=== PATIENT | female | born 1990 | race Caucasian/White ===

== ENCOUNTER 2017-03-16 12:01 | Emergency (ER) | payer OTHER ==
[~2017-03-16] VITALS: Ht 170.2 cm; Wt 74.8 kg
--- OUTSIDE RECORDS SUMMARY | ~2017-03-16 | XMS ---
Demographics + + + | Address | [address] | | | [place] | | | [place] [address] | + + + | Preferred Language | Unknown | + + + | Marital Status | Unknown | + + + | Presybeterian Affiliation | Unknown | + + + | Race | Unknown | + + + | Ethnic Group | Unknown | + + + Author + + + | Author | [facility] | + + + | Organization | [facility] | + + + | Address | [address] | | | [place] [address] | + + + | Phone | | + + + Care Team Providers + + + + | Care Bobbin Winder Name | Role | Phone | + + + + Unavailable | Unavailable | + + + + PROBLEMS + + + + + + + + | Type | Condition | ICD9-CM | [id number] | Onset | Condition | SNOMED | | | | Code | Code | Dates | Status | Code | + + + + + + + + | Problem | Depression | 300.4 | | | Active | [id number] | | | with | | | | | | | | anxiety | | | | | | + + + + + + + + | Problem | Insomnia | 307.42 | | | Active | [id number] | | | disorder | | | | | | | | related to | | | | | | | | another | | | | | | | | mental | | | | | | | | disorder | | | | | | + + + + + + + + | Assessment | Dental | K04.7 | | 06 Apr, | Active | [phone] | | | infection | | | 2017 | | | + + + + + + + + ALLERGIES + + + + +--------+ | Substance | Reaction | Event Type | Date | Status | + + + + +--------+ | erythromycin | vomit | Non Drug | Nov, | Active | | | | Allergy | | | + + + + +--------+ SOCIAL HISTORY No smoking Hx information available PLAN OF CARE VITAL SIGNS + + + + | Height | 65.75 in | 2016-12-04 | + + + + | Weight | 171.7 lbs | 2016-12-04 | + + + + | BMI | 27.92 kg/m2 | 2016-12-04 | + + + + | Temperature | 97.9 degrees Fahrenheit | 2016-12-04 | + + + + | Heart Rate | 45 /min | 2016-12-04 | + + + + | Blood pressure systolic | 127 mm Hg | 2016-12-04 | + + + + | Blood pressure diastolic | 64 mm Hg | 2016-12-04 | + + + + MEDICATIONS + + + + + + + +--------+ | Medicati | Instruct | Dosage | Frequenc | Start | End Date | Duration | Status | | on | ions | | y | Date | | | | + + + + + + + +--------+ | Amoxicil | Orally | 1 tablet | 12h | 06 Apr, | 16 Apr, | 10 | Active | | luis-Pot | every 12 | | | 2017 | 2017 | day(s) | | | Clavulan | hrs | | | | | | | | ate | | | | | | | | | 875-125 | | | | | | | | | MG | | | | | | | | + + + + + + + +--------+ | Aleve | Orally | 1 tablet | 12h | | | | Active | | 220 MG | every 12 | as | | | | | | | | hrs | needed | | | | | | + + + + + + + +--------+ RESULTS No Results PROCEDURES + + + + + | Procedure | Date Ordered | Related Diagnosis | Body Site | + + + + + | Est Level III | December 04, 2016 | | | | Intermediate | | | | + + + + + IMMUNIZATIONS No Known Immunizations"
[~2017-03-16 12:01] MED LIST: AMOXICILLIN500 MG PO; ATIVAN1 MG PO; DOXEPIN HCL25 MG PO; LORAZEPAM1 MG PO; MIRAPEX0.125 MG PO; MOBIC7.5 MG PO; NORCO 5-325 TA1 EACH PO; PENICILLIN V P500 MG PO; PERCOCET 5-3251 EACH PO; PROVENTIL HFA6.7 GM INH; ULTRAM50 MG PO; ZOLOFT100 MG PO
[2017-05-21] MEDS ORDERED: ZOFRAN ODT4 MG PO (22:10)
== END 2017-03-16 12:20 | disposition home or self-care (01) ==
LOC: ED 12:01
DX: Z00.8 Encounter for other general examination (principal)

== ENCOUNTER 2019-11-26 19:01 | Emergency (ER) | payer OTHER ==
[~2019-11-26] VITALS: Ht 170.2 cm; Wt 83.9 kg
[~2019-11-26 19:01] MED LIST changes: +HYDROXYZINE HCL10 MG PO; +KETOROLAC TROME10 MG PO; +ZOFRAN ODT4 MG PO
--- OUTSIDE RECORDS SUMMARY | 2019-11-26 19:04 | XMS ---
PreManage Notification: JOON COLBY Security Commanding Officer Traffic Division Events No recent Security Events currently on file CRITERIA MET - Group Notification - [facility] - Has Care Guidelines CARE PROVIDERS OUMOU MURRAY Nurse Practitioner: Women's Health 06/17/2018-Current PHONE: [phone] DR RANDALL OVALLES Primary Care 04/27/2017-Current PHONE: [phone] Stephani has no Care Guidelines for this patient. Care History Medical/Surgical 06/17/2018 [facility] - Patient is currently established with [facility]. If patient is seen in the ED during business hours. Please contact CHWs at [facility]. Care Recommendation: This patient has had 5 or more Emergency Department visits in the last 12 months.\T\nbsp; Patient requires education on the scope and purpose of the ED as an acute care provider not a Primary Care Provider and should not be utilized for chronic conditions.\T\nbsp; These are guidelines and the provider should exercise clinical judgment when providing care. E.D. VISIT COUNT (12 MO.) 1 [facility] TOTAL 1 NOTE: Visits indicate total known visits. ED/UCC VISIT TRACKING (12 MO.) 11/26/2019 19:02 [facility] [place] TYPE: Emergency COMPLAINT: - RIGHT LEG PAIN INPATIENT VISIT TRACKING (12 MO.) No inpatient visits to display in this time frame [email or web address]
[2019-11-26] MEDS ORDERED: MIRTAZAPINE15 MG PO (19:46)
[2019-11-26] MEDS ORDERED: HYDROXYZINE HCL25 MG PO (19:47)
[2019-11-26] MEDS ORDERED: CARBAMAZEPINE200 M1 PO (19:47)
[2019-11-26] MEDS ORDERED: GUANFACINE HCL E1 MG PO (19:47)
== END 2019-11-26 22:14 | disposition home or self-care (01) ==
LOC: ED 19:01
DX: M79.605 Pain in left leg (principal); M79.604 Pain in right leg; J45.909 Unspecified asthma, uncomplicated; F41.9 Anxiety disorder, unspecified; F90.9 Attention-deficit hyperactivity disorder, unspecified type; F32.9 Major depressive disorder, single episode, unspecified; Z79.899 Other long term (current) drug therapy
CPT/HCPCS: 80053; 80156; 82550; 84443; 85025; 96372; 99283; J1885

== ENCOUNTER 2023-01-02 17:43 | Emergency (ER) | payer OTHER ==
[~2023-01-02] VITALS: Ht 170.2 cm; Wt 75.3 kg
[~2023-01-02 17:43] MED LIST changes: +CARBAMAZEPINE200 M1 PO; +GUANFACINE HCL E1 MG PO; +HYDROXYZINE HCL25 MG PO; +MIRTAZAPINE15 MG PO; +NORETHINDRONE0.35 MG PO
--- OUTSIDE RECORDS SUMMARY | 2023-01-02 17:44 | XMS ---
PreManage Notification: JOON COLBY Security Agriculture Teacher Events No recent Security Events currently on file CRITERIA MET - Group Notification CARE PROVIDERS NOLAN TEMPLE Physician Magento Web Developer Current PHONE: Unknown OUMOU MURRAY Nurse Practitioner: Women's Health 06/17/2018-Current PHONE: [phone] Care Guidelines exist for the following facilities: [facility] ( 01/04/2020 ) Care History Medical/Surgical 06/17/2018 [facility] - Patient is currently established with [facility]. If patient is seen in the ED during business hours. Please contact CHWs at [facility]. Care Recommendation: This patient has had [...] providing care. E.D. VISIT COUNT (12 MO.) 2 [facility] TOTAL 2 NOTE: Visits indicate total known visits. ED/UCC VISIT TRACKING (12 MO.) 01/02/2023 17:43 [facility] [place] TYPE: Emergency COMPLAINT: - FALL 03/30/2022 22:[address] [facility] [place] TYPE: Emergency COMPLAINT: - VAGINAL BLEEDING DIAGNOSES: - Abnormal uterine and vaginal bleeding, unspecified - Allergy status to other antibiotic agents - Allergy status to other drugs, medicaments and biological substances - Other ovarian cyst, left side - Other specified abnormal uterine and vaginal bleeding - Unspecified asthma, uncomplicated INPATIENT VISIT TRACKING (12 MO.) No inpatient visits to display in this time frame [email or web address]
[2023-01-02] MEDS ORDERED: TRAZODONE HCL50 MG PO (17:53)
[2023-01-02] MEDS ORDERED: PERCOCET 5-3251 EACH PO (19:02)
[2023-01-02 19:15] VITALS: BP 114/72
== END 2023-01-02 19:15 | disposition home or self-care (01) ==
LOC: ED 17:43
DX: S82.61XA Displaced fracture of lateral malleolus of right fibula, initial encounter for closed fracture (principal); W10.8XXA Fall (on) (from) other stairs and steps, initial encounter; J45.909 Unspecified asthma, uncomplicated; Z88.8 Allergy status to other drugs, medicaments and biological substances; Z88.1 Allergy status to other antibiotic agents; Z79.899 Other long term (current) drug therapy
CPT/HCPCS: 73610; 99283-25

== ENCOUNTER 2024-04-19 12:44 | Day surgery (SDC) | payer OTHER ==
[~2024-04-19] VITALS: Ht 170.2 cm; Wt 72.6 kg
--- NOTE | ~2024-04-19 | OR ---
[facility] [address] [place], [place] [address] Draft DATE OF OPERATION: 04/19/2024 SURGEON: Keegan Grullon MD PREOPERATIVE DIAGNOSIS: Constipation alternating with diarrhea. POSTOPERATIVE DIAGNOSIS: Normal-appearing colon and ilium. PROCEDURE: Total colonoscopy to cecum with intubation of ileum and biopsy of ileum, ileocecal valve, cecum, sigmoid and rectum. ANESTHESIA: Intravenous sedation; fentanyl 200 mcg and Versed 7 mg total. INDICATION: This 33-year-old white woman is a patient of Dr. Holly. She has had complaints dominantly of constipation but also diarrhea from time to time. She has had no blood per rectum. She has had lower abdominal pain as well. She has no family history of colon cancer or inflammatory bowel disease. She additionally had an unexplained weight loss of approximately 20 pounds remaining at pounds in weight currently. She does describe a history of endometriosis and history of left ovarian cyst. She is admitted at this time to undergo colonoscopy to better characterize her gastrointestinal problems. She understands the risk of bleeding, infection, and perforation. FINDINGS: Complete colonoscopy was undertaken of the cecum with full intubation of the cecum. Additionally, the ileum was intubated and it appeared normal. Biopsies were taken of the ileum, cecum, sigmoid, and rectum. She had no evidence of polyps or diverticular formation. DESCRIPTION OF PROCEDURE: The patient was brought to the endoscopy suite and placed in the lateral decubitus position, given intravenous sedation to the point of slurred speech and nystagmus. Digital rectal examination was normal. An Olympus video colonoscope was passed in the rectum and manipulated throughout the colon ultimately intubating the cecum itself. The ileocecal valve and appendiceal PATIENT NAME: JOON COLBY OPERATIVE REPORT DATE OF : [birth year] REPORT #: [id number] PHYSICIAN: KEEGAN GRULLON MD PCP: NOLAN TEMPLE PA-C REPORT IS CONFIDENTIAL AND NOT TO BE RELEASED WITHOUT AUTHORIZATION [facility] [address] [place], [place] [address] Draft orifice were normal. The scope was passed into the ilium. The ileum appeared normal as well. There were some submucosal lymphoid aggregates as would be expected, but no sign of inflammation, scarring, stricture, or evidence of inflammatory bowel disease. Biopsies were taken nevertheless. The scope was withdrawn and biopsies also taken of the cecum. Careful withdrawal of scope and withdrawal throughout the entire colon showed no sign of diverticular formation or polyp. Biopsy of the sigmoid and rectum was undertaken. Not mentioned previously is biopsy of the ileocecal valve, which did have a somewhat polypoid appearance most likely with hyperplasia only. The scope was removed and the patient was taken to the recovery room in good condition. CONCLUDING DIAGNOSIS: No mucosal abnormality to account for her current symptoms. PLAN: Would recommend a fiber supplement such as Citrucel one scoop powder daily with increased oral fluids. Regular exercise and increase physical activity would be beneficial also. Consideration might be made for a low FODMAP diet, which could improve her symptoms as well. We will initiate this if it proves to be ineffective as regards to fiber supplementation. A second-line approach would possibly include Linzess or Amitiza. She will return to see us in approximately six weeks and we will assess her progress and management associated with it. MD MAXI Terry/CHAVA /[id number] cc: Dr. Sarika Holly Copies: ~ PATIENT NAME: JOON COLBY OPERATIVE REPORT DATE OF : [birth year] REPORT #: [id number] PHYSICIAN: KEEGAN GRULLON MD PCP: NOLAN TEMPLE PA-C REPORT IS CONFIDENTIAL AND NOT TO BE RELEASED WITHOUT AUTHORIZATION
[~2024-04-19 12:44] MED LIST changes: +CAMILA0.35 MG PO; +FLUTICASONE-SAL12 GM; +IBLOOD GLUCOSE TEST STRIP 1 EA TEST VI PRN; +LACTATED RINGER'S 1,000 ML IV SCH; +LIDOCAINE HCL 1% 5 ML SDV INJ ONE; +MIDAZOLAM HCL 5 MG/5 ML VIAL IV PRN; +TRAZODONE HCL50 MG PO; +VITAMIN D21250 MCG PO; +fentaNYL citrate 100 MCG/2 ML VIAL IV PRN
[2024-04-19 12:59] VITALS: BP 135/81
[2024-04-19] MEDS ORDERED: MOTRIN IB200 MG PO (13:01)
[2024-04-19] MEDS ORDERED: TYLENOL325 M1 PO (13:01)
[2024-04-19] MEDS ORDERED: MIDAZOLAM HCL 5 MG/5 ML VIAL ONE (13:28)
[2024-04-19] MEDS ORDERED: fentaNYL citrate 100 MCG/2 ML VIAL ONE (13:28)
--- NOTE | 2024-04-19 14:38 | NUR ---
04/19/24 1438 Alix Michel 1432- PT ARRIVES TO PACU REACTIVE TO VOICE. DOES NOT ANSWER QUESTIONS. FALLS INSTANTLY BACK TO SLEEP WHEN NOT BEING STIMULATED. RESP EVEN AND UNLABORED. OXYGEN SAT HIGH 90'S TO 100% ON 3L VIA CO2 NC. 1434- OXYGEN TITRATED OFF.
[2024-04-19 15:04] VITALS: BP 110/79
--- NOTE | 2024-04-22 12:46 | PATH ---
[facility] [address] [place], [place] [address] Signed SPECIMEN(S): A CECUM COLON BIOPSY SPECIMEN(S): B ILEOCECAL VALVE BIOPSY SPECIMEN(S): C TERMINAL ILEUM BIOPSY SPECIMEN(S): D SIGMOID COLON BIOPSY SPECIMEN(S): E RECTUM SPECIMEN SOURCE: A. CECUM COLON BIOPSY B. ILEOCECAL VALVE BIOPSY C. TERMINAL ILEUM BIOPSY D. SIGMOID COLON BIOPSY E. RECTUM CLINICAL HISTORY: Constipation/diarrhea, Abd. pain FINAL PATHOLOGIC DIAGNOSIS: A. Cecum, biopsy: - Colonic mucosa with no significant pathologic changes B. Ileocecal valve, biopsy: - Colonic mucosa with no significant pathologic changes C. Terminal ileum, biopsy: - Small bowel mucosa with no significant pathologic changes D. Colon, sigmoid, biopsy: - Colonic mucosa with no significant pathologic changes E. Rectum, biopsy: - Colonic mucosa with no significant pathologic changes BRP MICROSCOPIC EXAMINATION: Histologic sections of all submitted blocks are examined by light microscopy. These findings, together with the gross examination, support the pathologic diagnosis. GROSS DESCRIPTION: A. The specimen, labeled and designated "Chuy, designated per requisition, cecum biopsy," is received in formalin and consists of two fragments of soft johns tissue that are up to 0.3 cm in greatest dimension. Entirely submitted in (A1). B. The specimen, labeled and designated "Colby, designated per requisition, ileocecal valve biopsy," is received in formalin and consists of five fragments PATIENT NAME: JOON COLBY PATHOLOGY DATE OF : [birth year] REPORT #: [id number] PHYSICIAN: MONTY BUCHANAN PCP: NOLAN TEMPLE PA-C REPORT IS CONFIDENTIAL AND NOT TO BE RELEASED WITHOUT AUTHORIZATION [facility] [address] [place], [place] [address] Signed of soft johns tissue that are up to 0.5 cm in greatest dimension. Entirely submitted in (B1). C. The specimen, labeled and designated "Colby, designated per requisition terminal ileum biopsy," is received in formalin and consists of four fragments of soft johns tissue that are up to 0.7 cm in greatest dimension. Entirely submitted in (C1). D. The specimen, labeled and designated "Colby, designated per requisition sigmoid biopsy," is received in formalin and consists of one fragment of soft johns tissue that is up to 0.3 cm in greatest dimension. Entirely submitted in (D1). E. The specimen, labeled and designated "Colby, designated per requisition, rectum biopsy," is received in formalin and consists of two fragments of soft johns tissue that are up to 0.2 cm in greatest dimension. Entirely submitted in (E1). TW (under the direct supervision of a pathologist) The Gross Description was prepared using a voice recognition system. The report was reviewed for accuracy; however, sound-alike word errors, addition and/or deletions may occur. If there is any question about this report, please contact Client Services. ADDITIONAL NOTES: Immunohistochemical and/or in situ hybridization studies if performed in this case included appropriate positive controls that reacted as expected. This test was developed and its performance characteristics determined by [facility]. It has not been cleared or approved by the U.S. Food and Drug Administration. The FDA has determined that such clearance or approval is not necessary. This test is used for clinical purposes. It should not be regarded as investigational or for research. [facility] is certified under the Clinical Laboratory Improvement Amendments of 1988 (CLIA) as qualified to perform high complexity clinical laboratory testing. PERFORMING LABORATORY: Technical component was performed by [facility], [address] [place] [id number] (CLIA# [id number]). Professional interpretation was performed by [facility] - [facility], [address] [place] [address] (CLIA# [id number]). Diagnostician: Rei Min MD Pathologist PATIENT NAME: JOON COLBY PATHOLOGY DATE OF : [birth year] REPORT #: [id number] PHYSICIAN: MONTY BUCHANAN PCP: NOLAN TEMPLE PA-C REPORT IS CONFIDENTIAL AND NOT TO BE RELEASED WITHOUT AUTHORIZATION [facility] [address] [facility] [place] [address] Signed Electronically Signed 04/22/2024 Copies: ~ PATIENT NAME: JOON COLBY PATHOLOGY DATE OF : [birth year] REPORT #: [id number] PHYSICIAN: MONTY BUCHANAN PCP: NOLAN TEMPLE PA-C REPORT IS CONFIDENTIAL AND NOT TO BE RELEASED WITHOUT AUTHORIZATION
== END 2024-04-19 15:12 | disposition home or self-care (01) ==
LOC: OPS 12:44 → DS 12:45 → OPS 14:00
PROVIDERS: ATTEND Surgery
PROC: 0DBN8ZX Excision of Sigmoid Colon, Via Natural or Artificial Opening Endoscopic, Diagnostic (ICD-10-PCS; 2024-04-19)
PROC: 0DBP8ZX Excision of Rectum, Via Natural or Artificial Opening Endoscopic, Diagnostic (ICD-10-PCS; 2024-04-19)
PROC: 0DBB8ZX Excision of Ileum, Via Natural or Artificial Opening Endoscopic, Diagnostic (ICD-10-PCS; 2024-04-19)
PROC: 0DBC8ZX Excision of Ileocecal Valve, Via Natural or Artificial Opening Endoscopic, Diagnostic (ICD-10-PCS; 2024-04-19)
PROC: 0DBH8ZX Excision of Cecum, Via Natural or Artificial Opening Endoscopic, Diagnostic (ICD-10-PCS; principal; 2024-04-19 14:00)
DX: K59.00 Constipation, unspecified (principal); R19.7 Diarrhea, unspecified; J45.909 Unspecified asthma, uncomplicated; R13.10 Dysphagia, unspecified; F12.20 Cannabis dependence, uncomplicated; Z88.1 Allergy status to other antibiotic agents; Z88.8 Allergy status to other drugs, medicaments and biological substances; Z79.899 Other long term (current) drug therapy
CPT/HCPCS: 84703; 88305; 99153; G0500; J2250; J3010; J7121

== ENCOUNTER 2024-07-22 05:35 | Day surgery (SDC) | payer OTHER ==
[2024-07-20 15:38] VITALS: BP 118/77
[~2024-07-22] VITALS: Ht 170.2 cm; Wt 74.5 kg
[~2024-07-22 05:35] MED LIST changes: -IBLOOD GLUCOSE TEST STRIP 1 EA TEST VI PRN; -LIDOCAINE HCL 1% 5 ML SDV INJ ONE; -MIDAZOLAM HCL 5 MG/5 ML VIAL IV PRN; +MOTRIN IB200 MG PO; +TYLENOL325 M1 PO; +VENTOLIN HFA18 GM INH; -fentaNYL citrate 100 MCG/2 ML VIAL IV PRN
[2024-07-22 06:00] VITALS: BP 130/59
[2024-07-22] MEDS ORDERED: PARAGARD T 3801 EACH IY (06:09)
[2024-07-22] MEDS ORDERED: MULTIPLE VITAM1 EAC2 PO (06:11)
[2024-07-22] MEDS ORDERED: BUPIVACAINE HCL 0.25% 50 ML MDV ONE (06:49)
[2024-07-22] MEDS ORDERED: iopamidoL 30 ML VIAL ONE (06:49)
[2024-07-22] MEDS ORDERED: SODIUM CHLORIDE 0.9% 40 ML IV ONE (06:50)
[2024-07-22] MEDS ORDERED: SODIUM CHLORIDE 0.9% 20 ML IV ONE (06:50)
[2024-07-22] MEDS ORDERED: METOCLOPRAMIDE HCL 10 MG/2 ML SDV ONE (06:55)
[2024-07-22] MEDS ORDERED: SUGAMMADEX SODIUM 200 MG/2 ML ML ONE (06:55)
[2024-07-22] MEDS ORDERED: SUCCINYLCHOLINE IN 0.9% NACL 200 MG/10 ML SYRINGE ONE (06:55)
[2024-07-22] MEDS ORDERED: KETOROLAC TROMETHAMINE 30 MG/ML VIAL ONE (06:55)
[2024-07-22] MEDS ORDERED: ondansetron HCL 4 MG/2 ML VIAL ONE ×2 (06:55→09:21)
[2024-07-22] MEDS ORDERED: LACTATED RINGER'S 1,000 ML IV ONE (06:55)
[2024-07-22] MEDS ORDERED: ROCURONIUM BROMIDE 50 MG/5 ML SYR ONE (06:55)
[2024-07-22] MEDS ORDERED: DEXAMETHASONE SOD PHOS 4 MG/ML VIAL ONE (06:55)
[2024-07-22] MEDS ORDERED: fentaNYL citrate 100 MCG/2 ML VIAL ONE (06:55)
[2024-07-22] MEDS ORDERED: MIDAZOLAM HCL 2 MG/2 ML VIAL ONE (06:55)
[2024-07-22] MEDS ORDERED: propofoL 200 MG/20 ML VIAL ONE (06:55)
[2024-07-22] MEDS ORDERED: FAMOTIDINE 20 MG/ 2 ML VIAL ONE (06:55)
[2024-07-22] MEDS ORDERED: LIDOCAINE HCL 4% 5 ML AMP ONE (06:56)
[2024-07-22] MEDS ORDERED: CEFAZOLIN SODIUM 2 GM/20 ML SYR IV SCH (07:00)
[2024-07-22] MEDS ORDERED: IBLOOD GLUCOSE TEST STRIP 1 EA TEST VI PRN (07:00)
[2024-07-22] MEDS ORDERED: LIDOCAINE HCL 1% 5 ML SDV INJ ONE (07:00)
[2024-07-22] MEDS ORDERED: HEParin SOD (PORCINE) 5,000 UNIT/0.5 ML SYR SUB-Q SCH (07:00)
[2024-07-22] MEDS ORDERED: SEVOFLURANE 250 ML BTL INH ONE ×2 (08:00→13:15)
[2024-07-22] MEDS ORDERED: dexmedeTOMIDine HCl 200 MCG/2 ML VIAL ONE (08:14)
[2024-07-22] MEDS ORDERED: droPERidol 5 MG/2 ML VIAL ONE (08:15)
[2024-07-22] MEDS ORDERED: MORPHINE SULFATE 10 MG/ML VIAL ONE (08:31)
[2024-07-22] MEDS ORDERED: IBUPROFEN 600 MG TAB PO PRN (09:30)
[2024-07-22] MEDS ORDERED: HYDROCODONE/ACETA 5/325 TAB PO PRN (09:30)
[2024-07-22] MEDS ORDERED: NALOXONE HCL 0.4 MG SYR IV PRN ×2 (09:30→10:15)
[2024-07-22] MEDS ORDERED: HYDROmorphone HCL 1 MG/ML SYR IV PRN (09:30)
[2024-07-22] MEDS ORDERED: ondansetron HCL 4 MG/2 ML VIAL IV PRN ×2 (09:30→10:15)
[2024-07-22] MEDS ORDERED: ACETAMINOPHEN 500 MG TAB PO PRN (09:30)
[2024-07-22] MEDS ORDERED: LACTATED RINGER'S 1,000 ML IV SCH (09:30)
[2024-07-22] MEDS ORDERED: HYDROCODON-ACE1 EA10 PO (09:31)
[2024-07-22] MEDS ORDERED: IBUPROFEN600 MG PO (09:31)
[2024-07-22] MEDS ORDERED: ACETAMINOPHEN500 MG PO (09:32)
[2024-07-22] MEDS ORDERED: PROCHLORPERAZINE EDISYLATE 10 MG/2 ML VIAL ONE (09:37)
[2024-07-22] MEDS ORDERED: fentaNYL citrate 50 MCG/ML SDV ONE (09:47)
[2024-07-22 10:05] VITALS: BP 119/57
--- NOTE | 2024-07-22 10:13 | NUR ---
1005-PT ARRIVED BACK TO DS AWAKE BUT DROWSY. PT ANSWERS QUESTIONS APPROPRIATELY AND IS ABLE TO MAKE HER NEEDS KNOWN. SIG OTHER INTO ROOM UPON PTS RETURN WELL. VS TAKEN. REPORT RECEIVED FROM CAR BRACER. SURGICAL SITES VISUALIZED WITH CAR BRACER. NOTED LAP SITES X 4. STERI STRIPS CDI X4 LAP SITES. PT NOTED TO HAVE PILLOW TO GOLD TO ABD FOR COUGHING, DEEP BREATHING, AND POSITION CHANGES TO BRACE SURGICAL SITES AND HELP MINIMIZE DISCOMFORT. PT DEMONSTRATES PROPER USE OF PILLOW FOR THE PREVIOUSLY MENTIONED. IV SITE ASSESSED, PATENT, AND LR INFUSING PER ORDERS. PT REPORTS PAIN 4/10 IN SURGICAL SITES AND DENIES NAUSEA WHEN ASKED. PT PROVIDED WITH JELLO, CRACKERS, AND ICE WATER. ALL QUESTIONS ANSWERED. BED LOWERED, WHEELS LOCKED, BILAT RAILS IN PLACE. CALL LIGHT WITHIN PT REACH. 1013-SIG OTHER GIVEN PTS RX TO TAKE TO PHARMACY. SIG OTHER LEFT DS AND REPORTS HE WILL DROP OFF RX AND RETURN.
[2024-07-22] MEDS ORDERED: PROCHLORPERAZINE EDISYLATE 10 MG/2 ML VIAL IV PRN (10:15)
[2024-07-22] MEDS ORDERED: droPERidol 5 MG/2 ML VIAL IV PRN (10:15)
[2024-07-22] MEDS ORDERED: MEPERIDINE HCL 25 MG/1 ML VIAL IV PRN (10:15)
[2024-07-22] MEDS ORDERED: MORPHINE SULFATE 10 MG/ML VIAL IV PRN (10:15)
[2024-07-22] MEDS ORDERED: fentaNYL citrate 50 MCG/ML SDV IV PRN (10:15)
[2024-07-22] MEDS ORDERED: METOCLOPRAMIDE HCL 10 MG/2 ML SDV IV PRN (10:15)
--- NOTE | 2024-07-22 10:40 | NUR ---
07/22/24 1040 Lian Hermosillo 0911- PT ARRIVES TO THE PACU WITH AN ORAL AIRWAY AND ON 10L OF O2 VIA MASK. SMALL CHIN LIFT REQUIRED TO MAINTAIN AIRWAY. PT IS IN SEMI FOWLERS POSITION, AND LR INFUSING IN R FOREARM. ALL MONITORS PUT IN PLACE. SURGICAL SITES ARE CLEAN, DRY AND INTACT. PT IS NON-REACTIVE TO VERBAL AND TACTILE STILMULI. 0912- PT LIFTING HEAD OFF OF PILLOW. CHIN LIFT NO LONGER NEEDED AND ORAL AIRWAY REMOVED AFTER PT FOLLOWED INSTRUCTIONS TO REMOVE ORAL AIRWAY. PT COUGHING OFF AND ON AND HAS HANDS COVERING THEIR FACE. 0915- O2 TURNED OFF AND REMOVED. PILLOW GIVEN TO USE A SPLINT. 0920- PT O2 SATURATIONS IN THE LOW 90S AND ENCOURAGED TO COUGH AND DEEP BREATHE. PT STATES PAIN AT 3/10 AND NAUSEOUS FEELING LIKE SHE WAS GOING GET SICK. EMESIS BAG PROVIDED. O2 SATURATIONS INCREASED TO HIGH 90S. 0925- ZOFRAN GIVEN, SEE EMAR. 0930- PT ENCOURAGED TO COUGH AND DEEP BREATHE O2 SATURATIONS DECREASED TO LOW 90S. O2 SATURATION INCREASED TO HIGH 90S. 0945- PT CALIMS PAIN 5/10 AND STILL NAUSEOUS. COMPAZINE GIVEN, SEE EMAR. PLAN OF CARE DISCUESSED WITH PT AT THIS TIME. PT REPORTS PAIN IS 5/10 ON THE RIGHT SIDE AND DESCRIBES IT "PRESSURE". 0954- PT EDUCATED ON FENTANYL. FENTANYL GIVEN, SEE EMAR. FOR CONTINUES 5/10 PAIN. 1000- VSS. PT CLAIMS PAIN IS BACK BETWEEN A 3-4/10 AND TOLERABLE. PT BROUGHT BACK TO DAY SURGERY. ALL MONITORS REMOVED. 1005-BEDSIDE REPORT GIVEN TO JULES MCGARRY. AT BEDSIDE. SURGICAL SITES ASSESSED WITH DAY SURGERY NURSE AND ARE CLEAN, DRY, AND INTACT. PT HAS NO QUESTIONS OR CONCERNS. CARE TURNED OVER AT THIS TIME.
[2024-07-22] MEDS ORDERED: droPERidol 5 MG/2 ML VIAL IV ONE (10:45)
--- NOTE | 2024-07-22 10:45 | NUR ---
1030-SIG OTHER RETURNED FROM DROPPING RX OFF AND IS IN ROOM AT PTS BEDSIDE. CALL LIGHT ANSWERED AND PT REPORTS NAUSEA RETURNED AGAIN AFTER EATING A FEW BITES OF FOOD. PT WAS PROVIDED WITH ALCOHOL SWAB TO SMELL TO POSSIBLY HELP REDUCE. 1033-NOTIFIED DR. GRULLON OF RETURNED NAUSEA WITH 8MG OF ZOFRAN HAVING BEEN GIVING IN THE LAST COUPLE HOURS WELL COMPAZINE. REQUESTED ORDER TO GIVE INAPSINE. RECEIVED VERBAL ORDER FOR 0.625MG INAPSINE IV X 1 FOR NAUSEA RELIEF. ENTERED ORDER AND MED PULLED. 1045-DOSE OF IV INAPSINE GIVEN.
[2024-07-22 11:05] VITALS: BP 119/64
--- NOTE | 2024-07-22 11:11 | NUR ---
1105-INTO PTS ROOM FOR ROUTINE REASSESSMENT. VS TAKEN. IV SITE ASSESSED. SURGICAL SITES VISUALIZED, NO ACUTE CHANGES NOTED FROM INITIAL ASSESSMENT. PTS SPOUSE REMAINS IN ROOM AT PTS BEDSIDE. PT REPORTS NAUSEA HAS RESOLVED WHEN ASKED. INAPSINE APPEARS TO HAVE BEEN EFFECTIVE. PT NOTED TO BE AWAKE, ANSWERS ALL QUESTIONS APPROPRAITELY, BUT REPORTS SHE FEELS DROWSY. PT REASSURED THAT THIS IS EXPECTED AND LIKELY D/T RECENT MEDICATIONS GIVEN. PT AND SPOUSE VERBALIZED UNDERSANDING. DESPITE PTS REPORTS OF FEELING DROWSY, PT HAS REMAINED AWAKE DURATION OF TIME BACK HERE IN . PT HAS BEEN ABLE TO EAT JELLO CUP AND TAKING SIPS OF WATER W/O ISSUES. PT REPORTS PAIN INCREASED SLIGHTLY TO 4/10, WHICH SHE REPORTS IS TOLERABLE BUT GETTING CLOSE TO BEING MORE THATN TOLERABLE. PT DESCRIBES PAIN TO BE A "SHARP ACHING" IN LAP SITE AREAS. PT OFFERED ORAL PAIN MEDICATION AND WOULD LIKE TO TRY THIS TO RELIEVE SOME PAIN AND PREVENT IT FROM WORSENING. 1111-PO PAIN MEDS GIVEN. PTS SPOUSE REMAINS IN ROOM WITH PT AT BEDSIDE. CALL LIGHT WITHIN PT REACH. BED IN LOW POSITION, WHEELS LOCKED, BILAT RAILS IN PLACE FOR SAFETY.
--- NOTE | 2024-07-22 11:50 | NUR ---
1140-INTO PTS ROOM TO ANSWER CALL LIGHT. PT REPORTS URGE TO VOID AND WOULD LIKE TO TRY GETTING UP AND WALKING TO RESTROOM. PT REPORTS PAIN IMPROVED TO 2/10 AFTER ORAL PAIN MEDS GIVEN. IV SL'D AT THIS TIME. PT DENIES NAUSEA WHEN ASKED. PT UTILIZING PILLOW WITH POSITION CHANGE TO EOB. PT ASSISTED WITH SECURING GOWN TIES AND THEN STOOD. PT DENIES LIGHTHEADEDNESS, DIZZINESS, BLURRY VISION, ECT. PT ABLE TO AMBULATE ACROSS CHAN TO RESTROOM WITH RN SBA FOR SAFETY. SPOUSE INTO RESTROOM WITH PT AT PT REQUEST. 1145-PT VOIDED APPROX 200 ML OF CLR, YELLOW URINE. PT AMBULATED BACK TO ROOM WITH RN SBA. 1150-PT SITTING ON EOB WITH PERSONAL BELONGINGS AND CALL LIGHT WITHIN REACH. SPOUSE AT BEDSIDE AND ASSISTING PT WITH DRESSING.
[2024-07-22 12:04] VITALS: BP 112/58
--- NOTE | 2024-07-22 12:20 | NUR ---
1204-INTO PTS ROOM FOR ROUTINE REASSESSMENT AND DISCHARGE EDUCATION. PTS SPOUSE REMAINS IN ROOM WITH PT. VS TAKEN. IV SITE ASSESSED. SURGICAL SITES OBSERVED POST AMBULATION/DRESSING. NO ACUTE CHANGES NOTED FROM INITIAL ASSESSMENT. STERI STRIPS REMAIN IN PLACE AND NO DRAINAGE OBSERVED. PT REPORTS PAIN 3/10 AND REPORTS THIS TO BE TOLERABLE. PT DENIES NAUSEA WHEN ASKED. PT CONT TO EAT AND DRINK SMALL AMTS WITHOUT ISSUES. DISCHARGE EDUCATION REVIEWED WITH PT. PT INFORMED TO CALL DR. GRULLON'S OFFICE ON Thursday TO SCHEDULE 4 WEEK F/U APPT. PT INFORMED TO LEAVE STERI STRIPS TO LAP SITES IN PLACE AND ALLOW TO FALL OFF NATURALLY. DISCUSSED WITH PT THAT THEY CAN SHOWER AFTER 48 HOURS AND TO PAT AREAS DRY, BUT DO NOT RUB. PT EDUCATION ON PAIN MEDICATIONS ORDERED AND THINGS TO WATCH FOR AND NOTIFY PROVIDER OR COME IN TO BE SEEN IF EXPERIENCING. PT EDUCATED ON LIFTING RESTRICTION OF NO MORE THAN 20 POUNDS FOR THE NEXT 2 WEEKS. BOTH PT AND SPOUSE VERBALIZED UNDERSTANDING. ALL QUESTIONS ANSWERED. 1215-SPOUSE LEFT TO PULL CAR AROUND TO FRONT FOR PTS DISCHARGE. 1220-IV REMOVED. TIP OBSERVED TO BE INTACT. PRESSURE DRSG APPLIED.
--- NOTE | 2024-07-22 12:25 | NUR ---
PT DISCHARGED FROM DS VIA WC TO PASSENGER SIDE OF SPOUSES VEHICLE. ALL PERSONAL BELONINGS TAKEN WITH PT.
--- NOTE | 2024-07-22 14:25 | OR ---
[facility] [address] [place], [place] [address] Signed DATE OF OPERATION: 07/22/2024 SURGEON: Keegan Grullon MD PREOPERATIVE DIAGNOSIS: Chronic calculous cholecystitis. POSTOPERATIVE DIAGNOSIS: Chronic calculous cholecystitis. PROCEDURES: 1. Laparoscopic cholecystectomy with intraoperative cholangiogram. 2. Surgeon-directed fluoroscopy. ANESTHESIA: General endotracheal; Keegan Velazquez CRNA and local 10 mL of 0.25% Marcaine with epinephrine. INDICATION: This 33-year-old woman presented to me upon referral from RAYO Bennett with vague abdominal complaints including pelvic pain and so on. She has undergone colonoscopy as part of her evaluation and ultimately which showed no evidence of inflammatory bowel disease, though she did have bowel symptoms suggestive of that. She had vague abdominal pain including right-sided and pelvic pain. Pelvic ultrasound was essentially normal. A gallbladder ultrasound was performed which showed gallstones without evidence of acute cholecystitis and an elongated heterogeneous shadowing structure on the anterior gallbladder wall measuring 4.2 cm. Mild hepatic steatosis was noted. Suggestion was made for liver mass protocol MRI and MRCP, but given her age and clinical findings, I do not believe that would be necessary as she likely has chronic calculous cholecystitis. She is admitted at this time to undergo a laparoscopy with laparoscopic cholecystectomy and cholangiogram. She understands the risk of bleeding, infection, bile duct injury, need for open procedure and so on. Understanding that she wished to proceed. FINDINGS: The gallbladder was chronically inflamed. There were omental adhesions to the undersurface and a pericholecystic lymph node also noted. The gallbladder once excised showed multiple multifaceted gallstones and a dominant large gallstone as well. Cholangiogram showed no sign of filling defect. Attempts at vigorous retrograde filling in the biliary tree were unsuccessful despite 10 mg of morphine and 6 minutes of wait Electronically Signed By: KEEGAN GRULLON MD 07/22/24 6163 PATIENT NAME: BLU ROONEY OPERATIVE REPORT DATE OF : [birth year] REPORT #: [id number] PHYSICIAN: KEEGAN GRULLON MD PCP: NOLAN TEMPLE PA-C REPORT IS CONFIDENTIAL AND NOT TO BE RELEASED WITHOUT AUTHORIZATION [facility] [address] [place], [place] [address] Signed time. The liver itself appeared clinically normal. There were no other findings of note. PROCEDURE IN DETAIL: The patient was brought to the operating room and given a general endotracheal anesthetic. Preoperative antibiotic Ancef was given and sequential compression device stockings were used. The abdomen is prepared with a chlorhexidine solution and draped sterilely. An infraumbilical incision was made and using an open Marv cannula technique pneumoperitoneum was achieved to a level of 14 mmHg of carbon dioxide gas. Intra-abdominal inspection showed no sign of ascites or carcinomatosis. The gallbladder had a chronically inflamed appearance with a dull white appearance. Liver was normal. Three additional trocars were placed in usual configuration in the subxiphoid, right midclavicular, and right anterior axillary line. Gallbladder was elevated cephalad and omental adhesions were noted. These were taken down with blunt dissection. Using blunt and electrocautery dissection the triangle of Calot was dissected free identifying also pericholecystic lymph node that was enlarged. The cystic duct was dissected free quite completely and the critical view of safety affirmed. A clip was applied across the gallbladder cystic duct junction and transverse choledochotomy made within the cystic duct. Egress of clear bile was noted. Using the Blum type cholangiocatheter, intraoperative cholangiography was undertaken showing free flow of contrast in the biliary tree with prompt emptying into the duodenum. There was no significant retrograde flow beyond the cystic duct common duct junction and on that basis. Morphine 10 mg was administered IV. Cholangiography was repeated with intervals of 2 minutes, 4 minutes and ultimately 6 minutes still showing only minimal retrograde flow. Confident that there was no biliary problem in fact. Further waiting for additional views and cholangiogram was deemed inadvisable as there was profound antegrade flow through the widely patent ampulla. The catheter was removed and the cystic duct was triply clipped and divided. The gallbladder was dissected free in a retrograde fashion using electrocautery. No entry into the gallbladder was made during the course of dissection. The gallbladder was extracted through the infraumbilical port site without problem, opened on the back table and found to have multiple 1 cm multifaceted stones and a large 2.5 cm more rounded stone. There is no evidence of mucosal abnormality. No polyps and no other abnormality. Reinspection of subhepatic space showed no sign of bile leak, bleeding or other problems. Irrigation fluid was suctioned free. The trocars were removed under direct visualization showing no sign of bleeding. The infraumbilical fascial incision was reapproximated with interrupted 0 Vicryl suture. A 10 mL of 0.25% Marcaine with epinephrine was injected locally. The skin was then closed with interrupted 3-0 Vicryl and Steri-Strips were applied. She was ultimately extubated and transferred to the Electronically Signed By: KEEGAN GRULLON MD 07/22/24 1425 PATIENT NAME: BLU ROONEY OPERATIVE REPORT DATE OF : [birth year] REPORT #: [id number] PHYSICIAN: KEEGAN GRULLON MD PCP: NOLAN TEMPLE PA-C REPORT IS CONFIDENTIAL AND NOT TO BE RELEASED WITHOUT AUTHORIZATION [facility] [address] [place] [address] Signed recovery room in good condition having suffered no complications. Sponge, needle, and instrument counts were reported as correct x3. MD MAXI Terry/CHAVA /[id number] cc: RAYO Bennett Copies: ~ Electronically Signed By: KEEGAN GRULLON MD 07/22/24 1425 PATIENT NAME: BLU ROONEY OPERATIVE REPORT DATE OF : [birth year] REPORT #: [id number] PHYSICIAN: KEEGAN GRULLON MD PCP: NOLAN TEMPLE PA-C REPORT IS CONFIDENTIAL AND NOT TO BE RELEASED WITHOUT AUTHORIZATION
--- NOTE | 2024-07-26 08:43 | PATH ---
[facility] [address] [facility] [place], [place] [address] Signed SPECIMEN(S): A GALLBLADDER SPECIMEN SOURCE: A. GALLBLADDER CLINICAL HISTORY: Chronic cholecystitis with stones FINAL PATHOLOGIC DIAGNOSIS: Gallbladder, cholecystectomy: - Chronic calculous cholecystitis BRP MICROSCOPIC EXAMINATION: Histologic sections of all submitted blocks are examined by light microscopy. These findings, together with the gross examination, support the pathologic diagnosis. GROSS DESCRIPTION: The specimen, labeled and designated "Taylor Pulido, gallbladder," is received in formalin and consists of Specimen: Surgically opened gallbladder. Dimensions: 8.7 x 2.6 x 2.1 cm. Serosa: Smooth. Cystic Duct: Unobstructed. Calculi: Present. Mucosa: Green and velvety, slightly trabecular. Wall thickness: 0.4 cm. Lymph node: No pericystic lymph nodes are grossly identified. Additional: None. Corn [employer] Operator sections are submitted in (A1). AA (under the direct supervision of a pathologist) The Gross Description was prepared using a voice recognition system. The report was reviewed for accuracy; however, sound-alike word errors, addition and/or deletions may occur. If there is any question about this report, please contact Client Services. ADDITIONAL NOTES: Immunohistochemical and/or in situ hybridization studies if performed in this case included appropriate positive controls that reacted as expected. This test was developed and its performance PATIENT NAME: BLU PULIDO PATHOLOGY DATE OF : [birth year] REPORT #: [id number] PHYSICIAN: [facility] PCP: NOLAN TEMPLE PA-C REPORT IS CONFIDENTIAL AND NOT TO BE RELEASED WITHOUT AUTHORIZATION [facility] [address] [place], [place] [address] Signed characteristics determined by [facility]. It has not been cleared or approved by the U.S. Food and Drug Administration. The FDA has determined that such clearance or approval is not necessary. This test is used for clinical purposes. It should not be regarded as investigational or for research. [facility] is certified under the Clinical Laboratory Improvement Amendments of 1988 (CLIA) as qualified to perform high complexity clinical laboratory testing. PERFORMING LABORATORY: Technical component was performed by [facility], [address] [place] [address] (CLIA# [id number]). Professional interpretation was performed by [facility] [address] [place] [phone] [id number] Diagnostician: Rei Min MD Pathologist Electronically Signed 07/26/2024 Copies: ~ PATIENT NAME: BLU PULIDO PATHOLOGY DATE OF : [birth year] REPORT #: [id number] PHYSICIAN: [facility] PCP: NOLAN TEMPLE PA-C REPORT IS CONFIDENTIAL AND NOT TO BE RELEASED WITHOUT AUTHORIZATION
== END 2024-07-22 12:25 | disposition home or self-care (01) ==
LOC: DS 05:35
PROVIDERS: ATTEND Surgery
PROC: BF522Z0 Other Imaging of Gallbladder using Fluorescing Agent, Intraoperative (ICD-10-PCS; 2024-07-22)
PROC: 0FT44ZZ Resection of Gallbladder, Percutaneous Endoscopic Approach (ICD-10-PCS; principal; 2024-07-22 07:30)
DX: K80.10 Calculus of gallbladder with chronic cholecystitis without obstruction (principal); K66.0 Peritoneal adhesions (postprocedural) (postinfection)
CPT/HCPCS: 00790; 74300; 88304; J0330; J0690; J0780; J1100; J1644; J1790; J1885; J2250; J2270; J2405; J2704; J2765; J3010; J3490; J7121; Q9967